=== PATIENT | female | born 1965 | race Caucasian/White ===

== ENCOUNTER → 2017-05-27 | Outpatient (CLI) | payer OTHER ==
[~2017-05-27] MED LIST: ASCO500C PO; CETI-1 PO; CETI10 PO; FISH100020 PO; IMIT50TA PO; MAGN1TAB PO; MAGN400T14 PO; NIAC500T18 PO; NIAC500T5 PO; OMEGCAP PO; SUMA50 PO; TRAM50 PO; VENTAER INH; VERA40TA PO; VITA200013 PO; VITA250C3 CHEW; Z.0.BCPILL PO
[2017-05-27 12:58] LABS: AUTOMATED NEUTROPHIL # 3.7 TH/MM3 (1.8-7.7); BASOPHIL # 0.1 TH/MM3 (0-0.2); BASOPHIL % 0.9 % (0.0-2.0); EOSINOPHIL # 0.2 TH/MM3 (0-0.4); EOSINOPHIL % 2.9 % (0.0-4.0); HEMATOCRIT 43.3 % (35.0-46.0); HEMO FLAGS DIFF FINAL; LYMPH % 39.4 % (9.0-44.0); MEAN CELL VOLUME 87.6 FL (80.0-100.0); MEAN CORPUSCULAR HEMOGLOBIN 28.6 PG (27.0-34.0); MEAN CORPUSCULAR HGB CONC 32.7 % (32.0-36.0); MONO % 8.5 % (0.0-8.0); NEUT % 48.3 % (16.0-70.0); PLATELET COUNT 277 TH/MM3 (150-450); RED BLOOD COUNT 4.95 MIL/MM3 (4.00-5.30); RED CELL DISTRIBUTION WIDTH 12.9 % (11.6-17.2); WHITE BLOOD COUNT 7.6 TH/MM3 (4.0-11.0)
[2017-05-27 13:13] LABS: BLOOD, URINE NEG (NEG); GLUCOSE,URINE NEG (NEG); KETONE, URINE NEG (NEG); MUCUS URINE FEW /lpf (OCC); NITRITE,URINE NEG (NEG); PH, URINE 6.5 (5.0-8.5); SQUAMOUS EPITHELIAL CELL URINE 6 /hpf (0-5); URINE COLOR LIGHT-YELLOW (YELLW/STRAW)
[2017-05-27 13:22] LABS: BICARBONATE 28.6 MEQ/L (21.0-32.0)
--- NOTE | 2017-05-28 17:12 | EKG ---
Date Performed: 05/27/2017 Time Performed: 12:02:31 PTAGE: 52 years EKG: Sinus rhythm NORMAL ECG Compared to prior tracing no significant change DOCTOR: Andres Trotter Interpretating Date/Time 05/28/2017 17:11:08
== END ==
LOC: CPRE 11:05
PROVIDERS: ATTEND Obstetrics & Gynecology
DX: Z01.812 Encounter for preprocedural laboratory examination (principal); Z01.810 Encounter for preprocedural cardiovascular examination; N81.89 Other female genital prolapse
CPT/HCPCS: 36415; 80048; 81001; 84703; 85025; 86850; 86900; 86901; 93005

== ENCOUNTER 2017-05-28 05:56 | Observation (INO) | payer OTHER ==
[~2017-05-28] VITALS: Ht 157.5 cm; Wt 59.8 kg
[~2017-05-28 05:56] MED LIST changes: -ASCO500C PO; -CETI10 PO; -FISH100020 PO; -MAGN1TAB PO; -NIAC500T18 PO; -SUMA50 PO; -TRAM50 PO; -VITA200013 PO; -Z.0.BCPILL PO
[2017-05-28] MEDS ORDERED: METOPROLOL TARTRATE 25 MG TAB PO PRN (06:30)
[2017-05-28] MEDS ORDERED: CHLORHEXIDINE GLUCONATE 2 % 1 PACK (2 CLOTHS) TOPICAL PRN (06:30)
[2017-05-28] MEDS ORDERED: INSULIN HUMAN REGULAR 1,000 UNITS/10 ML VIAL SQ PRN (06:30)
[2017-05-28] MEDS ORDERED: SODIUM CHLORID 0.9% 500 ML IV PRN (06:30)
[2017-05-28] MEDS ORDERED: APREPITANT 40 MG CAP PO PRN (06:30)
[2017-05-28] MEDS ORDERED: LACTATED RINGER'S 1000 ML IV PRN (06:30)
[2017-05-28] MEDS ORDERED: ceFAZolin 2 GM PREMIX 50 ML IV SCH (06:30)
[2017-05-28] MEDS ORDERED: POVIDONE IODINE 5% (ANTISEPSIS KIT) 4 APPLICATIONS EACH NARE PRN (06:30)
[2017-05-28] MEDS ORDERED: VITA200013 PO (06:49)
[2017-05-28 06:52] VITALS: BP 105/65; PULSE 68; RESP 16; TEMP 97.8; O2SAT 98
[2017-05-28] MEDS ORDERED: ACETAMINOPHEN 1000 MG/100 ML VIAL IV ONE ×2 (07:55→07:58)
[2017-05-28] MEDS ORDERED: fentaNYL CITRATE 250 MCG/5 ML AMP ONE ×2 (07:55)
[2017-05-28] MEDS ORDERED: FAMOTIDINE 20 MG/2 ML VIAL ONE (07:58)
[2017-05-28] MEDS ORDERED: MIDAZOLAM HCL 2 MG/2 ML VIAL ONE (07:58)
[2017-05-28] MEDS ORDERED: ESTROGENS CONJUGATED VAG CREA 15 APPL/30 GM TUBE ONE (07:59)
[2017-05-28] MEDS ORDERED: BUPIVACAINE HCL PF 0.25% 30 ML VIAL ONE (08:02)
[2017-05-28] MEDS ORDERED: oxyCODONE/ACETAMINOPHEN 5 MG/325 MG TAB PO PRN ×2 (10:45)
[2017-05-28] MEDS ORDERED: SODIUM CHLORIDE 0.9% FLUSH 10 ML FLUSH IV FLUSH PRN (10:45)
[2017-05-28] MEDS ORDERED: LORazepam 0.5 MG TAB PO PRN (10:45)
[2017-05-28] MEDS ORDERED: PROMETHAZINE INJ 25 MG/ML VIAL IM PRN (10:45)
[2017-05-28] MEDS ORDERED: KETOROLAC TROMETHAMINE 30 MG/ML (IVP) VIAL IVP PRN (10:45)
[2017-05-28] MEDS ORDERED: HYDROmorphone HCL PF 1 MG/ML VIAL IVP PRN (10:45)
[2017-05-28] MEDS ORDERED: ONDANSETRON HCL 4 MG/2 ML VIAL IVP PRN (10:45)
[2017-05-28] MEDS ORDERED: diphenhydrAMINE HCL 25 MG CAP PO PRN (10:45)
[2017-05-28] MEDS ORDERED: SODIUM CHLORIDE 0.9% FLUSH 10 ML FLUSH IV FLUSH SCH (10:45)
[2017-05-28] MEDS ORDERED: IBUPROFEN 600 MG TAB PO PRN (10:45)
[2017-05-28] MEDS ORDERED: DO NOT ADM ANY ANTICOAGULANT DRUGS PRN (10:53)
--- NOTE | 2017-05-28 11:08 | MP ---
cc: DAVID SEN M.D., WESLEY M.D. DATE OF SURGERY: 05/28/2017 PREOPERATIVE DIAGNOSIS Symptomatic uterine prolapse, cystocele, rectocele. PROCEDURE Exam under anesthesia, anterior and posterior colporrhaphies, cystourethroscopy. POSTOPERATIVE DIAGNOSIS Symptomatic uterine prolapse, cystocele, rectocele. SURGEON [place]. ANESTHESIA General endotracheal intubation. ESTIMATED BLOOD LOSS 120 cc. DRAINS Hyde to gravity. OPERATIVE FINDINGS The patient had complete uterine prolapse, stage III with a stage I cystocele and a stage II rectocele. PREOPERATIVE MEDICATIONS The patient received Ancef 2 grams prophylactically. INDICATION FOR PROCEDURE Patient with chronic debilitating pelvic prolapse attempted to use a pessary with no significant improvement. After reviewing the options she elected for surgical intervention. After reviewing the plan of procedure the patient elected as well to keep her ovaries intact. DETAILS OF PROCEDURE The patient was taken to the operating room in stable condition and underwent general anesthesia with endotracheal intubation. She was carefully positioned in the dorsal lithotomy position using candy-cane stirrups. She had sequentials placed on her lower extremities for VTE prophylaxis. She was prepped and draped and a Hyde was inserted by sterile technique. A timeout was conducted and agreed by all present in the room. Dissection initiated by identifying the cervix in the midline and making a linear incision in the posterior cul-de-sac opening into the intra-abdominal cavity allowing separation of the uterosacral ligaments from the uterus. These were clamped with Charlie clamps and transfixed with a suture of 2-0 Vicryl which was used on all pedicles. Serial excision and isolation of the appropriate pedicles were made bilaterally allowing the vaginal mucosa to fall away from the cervix, the bladder anteriorly. Once the vascular pedicles were secured hemostatically the uteroovarian pedicle was ligated with two sutures, free tie of 2-0 Vicryl followed by a transfixing suture of 2-0 Vicryl with good result. Once the uterus was removed the pedicles were observed to be dry. The peritoneum was then closed with a running suture of 3-0 Vicryl and the vaginal cuff was closed with interrupted suture of 2-0 Vicryl with good integrity. After completion of the hysterectomy portion the anterior repair was conducted, injecting the vaginal mucosa with 0.25% plain Marcaine allowing a linear incision to be made to dissect the defect. This was done by a combination of blunt and sharp dissection. The defect was reduced with an interrupted suture of 2-0 Monocryl and then the redundant vaginal mucosa was trimmed and closed with 3-0 Vicryl. Attention was directed to the posterior repair which was conducted in the same fashion, injecting the vaginal mucosa with 0.25% plain Marcaine and making a linear incision over the defect in the midline and then dissecting the defect away from the vaginal mucosa placing interrupted sutures of 2-0 Monocryl in a UR-6 needle to reduce the defect in the rectum and then trimming the vaginal mucosa. Once all sutures were trimmed the vaginal mucosa was closed in a linear fashion with good result. Good integrity of the closure was noted. There was no active bleeding. The vaginal vault was irrigated with normal saline. No active bleeding was noted. A two-inch vaginal packing with Premarin cream was placed into the vaginal vault. The Hyde catheter was removed. A 70-degree cystoscope was used with normal saline to examine the bladder which was intact. There was no interruption, no defect, no suture placement. Both ureteral orifices were peristalsing normally and patent. Completion of the cysto was followed by reinsertion of the Hyde catheter draining clear urine. At the completion of the case the final counts were correct. The patient was stable. She was taken to recovery room on room air. David Sen MD SJKassi/LISSY /10:48 AM /10:58 AM
[2017-05-28] MEDS ORDERED: LACTATED RINGER'S 1000 ML INJ 1,000 ML IV ONE (12:00)
[2017-05-28] MEDS ORDERED: KETOROLAC TROMETHAMINE 60 MG/2 ML (IM) VIAL IM ONE (12:00)
[2017-05-28] MEDS ORDERED: NEOSTIGMINE 3 MG/3 ML SYR IV ONE (12:00)
[2017-05-28] MEDS ORDERED: PROPOFOL 200 MG/20 ML AMP IV ONE (12:00)
[2017-05-28] MEDS ORDERED: ONDANSETRON HCL 4 MG/2 ML VIAL IV PUSH ONE (12:00)
[2017-05-28] MEDS ORDERED: ePHEDrine/NS 25 MG/5 ML SYR IV ONE (12:00)
[2017-05-28] MEDS ORDERED: *morphine SULFATE 8 MG/ML PERIprocedure ONLY ONE (12:02)
[2017-05-28 12:40] VITALS: BP 96/56; PULSE 80; RESP 15; TEMP 97.6; O2SAT 100
[2017-05-28] MEDS: DOCUSATE SODIUM 100 MG CAP PO SCH (13:00)
[2017-05-28 16:36] VITALS: BP 98/58; PULSE 87; RESP 18; TEMP 97.8; O2SAT 100
[2017-05-28 19:15] VITALS: BP 103/69; PULSE 72; RESP 16; TEMP 97.5; O2SAT 100
[2017-05-28] MEDS: LACTATED RINGER'S 1000 ML INJ 1,000 ML IV SCH (19:16)
[2017-05-28] MEDS ORDERED: ZOLPIDEM TARTRATE 5 MG TAB PO PRN (21:00)
[2017-05-28 23:30] VITALS: BP 103/60; PULSE 91; RESP 18; TEMP 98.1; O2SAT 100
[2017-05-29] MEDS: DOCUSATE SODIUM 100 MG CAP PO SCH ×2 (01:00→11:38)
[2017-05-29] MEDS: LACTATED RINGER'S 1000 ML INJ 1,000 ML IV SCH (02:00)
[2017-05-29 03:50] VITALS: BP 114/62; PULSE 90; RESP 16; TEMP 98.2; O2SAT 100
[2017-05-29 05:55] LABS: AUTOMATED NEUTROPHIL # 10.5 TH/MM3 (1.8-7.7); BASOPHIL % 0.2 % (0.0-2.0); HEMO FLAGS DIFF FINAL; LYMPH % 13.4 % (9.0-44.0); LYMPHOCYTE # 1.7 TH/MM3 (1.0-4.8); MEAN CELL VOLUME 87.6 FL (80.0-100.0); MEAN CORPUSCULAR HEMOGLOBIN 29.1 PG (27.0-34.0); MEAN CORPUSCULAR HGB CONC 33.2 % (32.0-36.0); NEUT % 80.4 % (16.0-70.0); PLATELET COUNT 235 TH/MM3 (150-450); RED BLOOD COUNT 4.11 MIL/MM3 (4.00-5.30)
[2017-05-29 06:14] LABS: BICARBONATE 28.5 MEQ/L (21.0-32.0); POTASSIUM 3.9 MEQ/L (3.5-5.1)
[2017-05-29 08:25] VITALS: BP 89/61; PULSE 74; RESP 16; TEMP 98.5; O2SAT 100
--- NOTE | 2017-05-29 10:55 | HHI.DCPOC ---
Discharge Care Plan Your Health Problems Are: Fever, temperature>100.4 Nausea and/or vomiting Pelvic pain Vaginal bleeding Urinary difficulties Report Symptoms to Your Doctor -Temperature above 100.5 degrees -Redness, of incision or excessive or foul smelling drainage -Unusual pain or calf pain -Increased vaginal bleeding -Painful or difficulty urinating -Feelings of extreme sadness or anxiety after 2 weeks Goals to Promote Your Health * To prevent worsening of your condition and complications * To maintain your health at the optimal level Directions to Meet Your Goals Take your medications as prescribed Follow your dietary instruction Follow activity as directed Ensure plenty of rest for recovery Drink fluids for hydration Keep your appointments as scheduled Take your immunizations and boosters as scheduled If your symptoms worsen call your PCP, if no PCP go to Urgent Care Center or Emergency Room Smoking is Dangerous to Your Health. Avoid second hand smoke Call the 24-hour crisis hotline for domestic abuse at David Colón MD May 29, 2017 10:55
--- NOTE | 2017-05-29 10:59 | HHI.PR ---
Subjective Remarks POD#1; Doing well, pain is well controlled, eating well. Objective Vital Signs Vital Signs Date Time Temp Pulse Resp B/P Pulse Ox O2 Delivery O2 Flow Rate FiO2 05/29/17 08:25 98.5 74 16 89/61 100 05/29/17 08:25 98.5 74 16 89/61 100 05/29/17 03:50 98.2 90 16 114/62 100 05/28/17 23:30 98.1 91 18 103/60 100 05/28/17 19:15 97.5 72 16 103/69 100 05/28/17 16:36 97.8 87 18 98/58 100 05/28/17 12:40 97.6 80 15 96/56 100 05/28/17 12:15 63 14 98/57 96 Room Air 05/28/17 12:00 61 14 105/59 93 Room Air 05/28/17 11:45 75 16 107/60 97 Room Air 05/28/17 11:30 68 15 106/58 99 Room Air 05/28/17 11:15 62 15 111/57 99 Nasal Cannula 2 05/28/17 11:00 68 15 116/50 100 Nasal Cannula 2 I/O 05/28/17 05/28/17 05/28/17 05/29/17 05/29/17 05/29/17 07:00 15:00 23:00 07:00 15:00 23:00 Intake Total 990 ml 1990 ml Output Total 150 ml 225 ml 2125 ml 400 ml Balance -150 ml 765 ml -135 ml -400 ml Intake Oral 240 ml IV Total 990 ml 1750 ml Output Urine Total 150 ml 225 ml 2125 ml 400 ml Result Diagram: 05/29/17 0437 05/29/17 0437 Objective Remarks Chest is clear, regular rate and rhythm. Abdomen is soft and non-distended. Incision is clean and dry. Ext no CCE. A/P Assessment and Plan Post Op Day 1 Doing well, voiding well, no drainage Home today and return to office in one weeks. David Colón MD May 29, 2017 10:58
== END 2017-05-29 11:48 | disposition home or self-care (01) ==
LOC: HSDC 05:56 → HSDI 10:36 → H1EA 12:20
PROVIDERS: ADMIT Obstetrics & Gynecology; ATTEND Obstetrics & Gynecology
PROC: 0JQC0ZZ Repair Pelvic Region Subcutaneous Tissue and Fascia, Open Approach (ICD-10-PCS; 2017-05-28)
PROC: 0JQC0ZZ Repair Pelvic Region Subcutaneous Tissue and Fascia, Open Approach (ICD-10-PCS; principal; 2017-05-28 08:11)
DX: N81.3 Complete uterovaginal prolapse (principal); N80.0 Endometriosis of uterus; N72 Inflammatory disease of cervix uteri
CPT/HCPCS: 00942; 57260; 80048; 85025; 88302; 88307; G0378; J0131; J0690; J1885; J2250; J2270; J2405; J2710; J3010; J7120; J8501; 88305

== ENCOUNTER 2017-08-23 13:27 | Emergency (ER) | payer OTHER ==
[~2017-08-23] VITALS: Ht 157.5 cm; Wt 58.0 kg
[~2017-08-23 13:27] MED LIST changes: +VITA200013 PO
[2017-08-23 13:29] VITALS: BP 147/51; PULSE 122; RESP 20; TEMP 98.8; O2SAT 97
[2017-08-23] MEDS ORDERED: NITR100C4 PO (14:12)
--- NOTE | 2017-08-23 14:20 | PD ---
HPI Chief Complaint: Complaint Time Seen by Provider: 13:58 Travel History International Travel<30 days: No Contact w/Intl Traveler<30days: No Traveled to known affect area: No History of Present Illness HPI 52-year-old female that presents to the ED for evaluation of possible UTI. Per patient since yesterday she's been developing lower pelvic pain as well as back pain. Last night she developed a fever as well as chills and congestion and she got concerned because she's had UTIs 2 since having her hysterectomy. She denies ever having UTIs in the past. She was started on Macrobid by her doctor and had to pink up but she did not get the results of the urine. Denies any fevers chills or sweats at this time and she took some medication to alleviate. She has had 2 doses of her Macrobid. She does have allergies to sulfa. She states that her pain is 2 out of 10 and is not severe. She denies any vaginal discharge or bleeding. No bowel movement issues. Per patient the urine has some smell to it. Does not hurt to urinate. Denies any other medical issues at this time. PFSH Past Medical History Asthma: No Blood Disorders: No Anxiety: Yes Cancer: No Cardiovascular Problems: No High Cholesterol: Yes Chest Pain: Yes (STRESSTEST: SEP, 2014: NEGATIVE) Diabetes: No Endocrine: No Genitourinary: No Headaches: Yes Hepatitis: No Hiatal Hernia: No Immune Disorder: Yes (PSORIASIS) Musculoskeletal: No Neurologic: No Psychiatric: No Reproductive: Yes Respiratory: Yes (ASTHMA) Integumentary: Yes (PSORIASIS) Migraines: Yes Pneumonia: Yes (WALKING) Thyroid Disease: No ?: Not : 2 Para: 2 Past Surgical History Abdominal Surgery: No AICD: No Body Medical Devices: NONE Cardiac Surgery: No Ear Surgery: No Endocrine Surgery: No Eye Surgery: No Genitourinary Surgery: No Gynecologic Surgery: No Hysterectomy: Yes Joint Replacement: No Oral Surgery: No Pacemaker: No Thoracic Surgery: No Tonsillectomy: Yes (AGE 6) Other Surgery: Yes (Tonsilectomy) Social History Alcohol Use: No Tobacco Use: No Substance Use: No Allergies-Medications (Allergen,Severity, Reaction): Coded Allergies: gabapentin (Unverified Allergy, Intermediate, Diarrhea, 08/23/17) "SEVERE DIARRHEA" sulfamethoxazole (Unverified Allergy, Intermediate, Nausea/Vomiting, ) trimethoprim (Unverified Allergy, Intermediate, Nausea/Vomiting, 08/23/17) Reported Meds & Prescriptions Reported Meds & Active Scripts Active Amoxicillin 875 Mg Tab 875 Mg PO BID 10 Days Reported Nitrofurantoin Monohydrate Macrocrystals (Nitrofurantoin Monoh/Nitrofur Macro) 100 Mg Cap 100 Mg PO BID Vitamin D (Cholecalciferol) 2,000 Unit Cap 1 Tab PO DAILY Verapamil (Verapamil HCl) 40 Mg Tab 40 Mg PO BID Imitrex (Sumatriptan Succinate) 50 Mg Tab 50 Mg PO ONCE PRN If a satisfactory response has not been obtained at 2 hours, a second dose may be administered Helotes-3 Fish Oil/Vitamin (Fish Oil-Cholecalciferol) 1,000-1,000 Mg Cap 1 Cap PO DAILY Niacin 500 Mg Tab 500 Mg PO DAILY Magnebind-400 Rx (Magnesium-Calcium Carbonates-Folic Acid) 400-200-1 Mg Tab 2 Tab PO HS Zyrtec (Cetirizine HCl) 10 Mg Tablet 10 Mg PO HS Vitamin C (Ascorbic Acid) 250 Mg Chew 500 Mg CHEW HS Ventolin Hfa 18 GM Inh (Albuterol Sulfate) 90 Mcg/Act Aer 1 Puff INH Q4H PRN Review of Systems Except as stated in HPI: all other systems reviewed are Neg Physical Exam Narrative GENERAL: SKIN: Warm and dry. HEAD: Atraumatic. Normocephalic. EYES: Pupils equal and round. No scleral icterus. No injection or drainage. ENT: No nasal bleeding or discharge. Mucous membranes pink and moist. Tongue is midline. No uvula deviation. TMs appear to be clear with no sign of infection or perforation with exception of the right lung which does appear to be fluid-filled and erythematous. No pain. Tonsils are not swollen or deviated. No exudates noted. No meningeal signs noted. NECK: Trachea midline. No JVD. CARDIOVASCULAR: Regular rate and rhythm. No murmurs, S3, S4. RESPIRATORY: No accessory muscle use. Clear to auscultation. Breath sounds equal bilaterally. GASTROINTESTINAL: Abdomen soft, non-tender, nondistended. Hepatic and splenic margins not palpable. MUSCULOSKELETAL: Extremities without clubbing, cyanosis, or edema. No obvious deformities. Full range of motion of the upper and lower extremities bilaterally. 2+ pulses bilaterally. NEUROLOGICAL: Awake and alert. No obvious cranial nerve deficits. Motor grossly within normal limits. Five out of 5 muscle strength in the arms and legs. Normal speech. PSYCHIATRIC: Appropriate mood and affect; insight and judgment normal. Data Data Last Documented VS Vital Signs Date Time Temp Pulse Resp B/P (MAP) Pulse Ox O2 Delivery O2 Flow Rate FiO2 08/23/17 16:40 08/23/17 16:32 100 18 98 08/23/17 13:29 98.8 Orders Orders Complete Blood Count With Diff (08/23/17 13:58) Comprehensive Metabolic Panel (08/23/17 13:58) Lipase (08/23/17 13:58) Urinalysis - C+S If Indicated (08/23/17 13:58) Chest, Single Ap (08/23/17 ) Ct Abd/Pel W Iv Contrast(Rout) (08/23/17 ) Sodium Chlor 0.9% 1000 Ml Inj (Ns 1000 M (08/23/17 14:42) Iohexol 350 Inj (Omnipaque 350 Inj) (08/23/17 15:19) Labs Laboratory Tests Test 08/23/17 14:10 White Blood Count 17.5 TH/MM3 Red Blood Count 4.90 MIL/MM3 Hemoglobin 14.6 GM/DL Hematocrit 42.6 % Mean Corpuscular Volume 87.0 FL Mean Corpuscular Hemoglobin 29.8 PG Mean Corpuscular Hemoglobin Concent 34.2 % Red Cell Distribution Width 12.7 % Platelet Count 239 TH/MM3 Mean Platelet Volume 8.3 FL Neutrophils (%) (Auto) 91.8 % Lymphocytes (%) (Auto) 4.5 % Monocytes (%) (Auto) 2.1 % Eosinophils (%) (Auto) 1.3 % Basophils (%) (Auto) 0.3 % Neutrophils # (Auto) 16.1 TH/MM3 Lymphocytes # (Auto) 0.8 TH/MM3 Monocytes # (Auto) 0.4 TH/MM3 Eosinophils # (Auto) 0.2 TH/MM3 Basophils # (Auto) 0.1 TH/MM3 CBC Comment AUTO DIFF Differential Comment AUTO DIFF CONFIRMED Platelet Estimate NORMAL Platelet Morphology Comment NORMAL Red Cell Morphology Comment NORMAL Urine Color LIGHT-YELLOW Urine Turbidity CLEAR Urine pH 7.5 Urine Specific [place] 1.001 Urine Protein NEG mg/dL Urine Glucose (UA) NEG mg/dL Urine Ketones NEG mg/dL Urine Occult Blood NEG Urine Nitrite NEG Urine Bilirubin NEG Urine Urobilinogen LESS THAN 2.0 MG/DL Urine Leukocyte Esterase NEG Urine RBC LESS THAN 1 /hpf Urine WBC LESS THAN 1 /hpf Urine Squamous Epithelial Cells <1 /hpf Microscopic Urinalysis Comment CULT NOT INDICATED Blood Urea Nitrogen 14 MG/DL Creatinine 0.90 MG/DL Random Glucose 100 MG/DL Total Protein 7.6 GM/DL Albumin 3.9 GM/DL Calcium Level 8.7 MG/DL Alkaline Phosphatase 67 U/L Aspartate Amino Transf (AST/SGOT) 16 U/L Alanine Aminotransferase (ALT/SGPT) 27 U/L Total Bilirubin 1.2 MG/DL Sodium Level 140 MEQ/L Potassium Level 3.8 MEQ/L Chloride Level 104 MEQ/L Carbon Dioxide Level 29.9 MEQ/L Anion Gap 6 MEQ/L Estimat Glomerular Filtration Rate 66 ML/MIN Lipase 142 U/L MDM Medical Decision Making Medical Screen Exam Complete: Yes Emergency Medical Condition: Yes Medical Record Reviewed: Yes Interpretation(s) CBC & BMP Diagram 08/23/17 14:10 Total Protein 7.6, Albumin 3.9, Calcium Level 8.7, Alkaline Phosphatase 67, Aspartate Amino Transf (AST/SGOT) 16, Alanine Aminotransferase (ALT/SGPT) 27, Total Bilirubin 1.2 H lipase WNL UA negative Last Impressions Chest X-Ray 08/23/17 0000 Signed Impressions: Service Date/Time: Wednesday, August 23, 2017 14:26 - CONCLUSION: No acute disease. Marlon Flores MD Abdomen/Pelvis CT 08/23/17 0000 Signed Impressions: Service Date/Time: Wednesday, August 23, 2017 15:18 - CONCLUSION: No acute CT findings in the abdomen or pelvis. Marlon Flores MD Differential Diagnosis UTI versus cystitis versus lower abdominal discomfort versus sepsis versus pyelonephritis versus pneumonia versus bronchitis Narrative Course 52-year-old female that presents to the ED for evaluation of possible UTI. Patient was properly examined and was found to have signs and symptoms of unclear to this time. Possible UTI noted. Labs and imaging were ordered. Labs and imaging were essentially unremarkable. Urine was completely clean. Chest x-ray to show any sign of pneumonia. On exam she does appear to have a possible early otitis media on the right side. There is definite difference between the TMs but in the right on the left than the right one appears to be bulging with some erythema but patient has no pain. I do suspect she may be having a URI. Because the patient did have recent surgery and she had some lower abdominal pain with touch and do recommend imaging to make sure there is nothing else. CT was done and was negative. She agreed with this plan. CT negative for acute disease. Patient will be treated with amoxicillin for her ear infection. Likely URI related. Told to DC macrobid as it does not appear to be a UTI. Follow up with PCP. See ED if worsening symptoms. Diagnosis Primary Impression: Otitis media Qualified Codes: H66.001 - Acute suppurative otitis media without spontaneous rupture of ear drum, right ear Patient Instructions: General Instructions Additional Instructions: Stop the Macrobid. Take amoxicillin. Decongestants as needed. See ED for any worsening symptoms. Tylenol and Motrin for the fever and pain as needed. Med/Other Pt SpecificInfo: Prescription(s) given Scripts Amoxicillin (Amoxicillin) 875 Mg Tab 875 MG PO BID for Infection for 10 Days, #20 TAB 0 Refills Prov: Scott Luis MD 08/23/17 Disposition: 01 DISCHARGE HOME Condition: Stable Stefan Arellano Aug 23, 2017 14:20
[2017-08-23 14:25] LABS: AUTOMATED NEUTROPHIL # 16.1 TH/MM3 (1.8-7.7); BASOPHIL # 0.1 TH/MM3 (0-0.2); BASOPHIL % 0.3 % (0.0-2.0); EOSINOPHIL # 0.2 TH/MM3 (0-0.4); EOSINOPHIL % 1.3 % (0.0-4.0); HEMATOCRIT 42.6 % (35.0-46.0); LYMPH % 4.5 % (9.0-44.0); LYMPHOCYTE # 0.8 TH/MM3 (1.0-4.8); MEAN CORPUSCULAR HEMOGLOBIN 29.8 PG (27.0-34.0); MEAN CORPUSCULAR HGB CONC 34.2 % (32.0-36.0); MONO % 2.1 % (0.0-8.0); NEUT % 91.8 % (16.0-70.0); PLATELET COUNT 239 TH/MM3 (150-450); RED CELL DISTRIBUTION WIDTH 12.7 % (11.6-17.2); WHITE BLOOD COUNT 17.5 TH/MM3 (4.0-11.0)
[2017-08-23 14:26] LABS: BLOOD, URINE NEG (NEG); GLUCOSE,URINE NEG (NEG); HEMO FLAGS AUTO DIFF; KETONE, URINE NEG (NEG); NITRITE,URINE NEG (NEG); PH, URINE 7.5 (5.0-8.5); SQUAMOUS EPITHELIAL CELL URINE <1 /hpf (0-5); URINE COLOR LIGHT-YELLOW (YELLW/STRAW)
[2017-08-23 14:30] LABS: COMMENT (UR) CULT NOT INDICATED; CULTURE IF INDICATED CULT NOT INDICATED
--- NOTE | 2017-08-23 14:39 | RADRPT ---
EXAM DATE/TIME: 08/23/2017 14:26 [facility] COMPARISON: CHEST SINGLE AP, September 24, 2014, 19:49. INDICATIONS : Fever. Chills. MEDICAL HISTORY : None. SURGICAL HISTORY : None. ENCOUNTER: Initial ACUITY: 2 days PAIN SCORE: 0/10 LOCATION: Bilateral chest FINDINGS: A single view of the chest demonstrates the lungs to be symmetrically aerated without evidence of mas s, infiltrate or effusion. The cardiomediastinal contours are unremarkable. Osseous structures are intact. CONCLUSION: No acute disease. Marlon Flores MD on August 23, 2017 at 14:37 Board Certified Radiologist. This report was verified electronically.
[2017-08-23 14:41] LABS: ALT (GPT) 27 U/L (10-53); ANION GAP 6 MEQ/L (5-15); AST (GOT) 16 U/L (15-37); BICARBONATE 29.9 MEQ/L (21.0-32.0); BLOOD UREA NITROGEN 14 MG/DL (7-18); CHLORIDE 104 MEQ/L (98-107); GLOMERULAR FILTRATION RATE 66 ML/MIN (>89); POTASSIUM 3.8 MEQ/L (3.5-5.1); SODIUM (NA) 140 MEQ/L (136-145)
[2017-08-23] MEDS ORDERED: SODIUM CHLOR 0.9% 1000 ML INJ 1,000 ML IV SCH (14:42)
[2017-08-23 14:43] LABS: ALKALINE PHOSPHATASE 67 U/L (45-117); TOTAL BILIRUBIN ADULT 1.2 MG/DL (0.2-1.0)
[2017-08-23 14:51] LABS: PLATELET ESTIMATE SMEAR NORMAL (NORMAL); PLATELET MORPHOLOGY NORMAL (NORMAL); SCAN/DIFF AUTO DIFF CONFIRMED
[2017-08-23] MEDS ORDERED: IOHEXOL 350 MG/ML 10 ML VIAL (for RAD DIAG) IVCONTRAST ONE (15:19)
--- NOTE | 2017-08-23 15:35 | RADRPT ---
EXAM DATE/TIME: 08/23/2017 15:18 [facility] COMPARISON: No previous studies available for comparison. INDICATIONS : Low abdomen pain; fever, chills. IV CONTRAST: 100 cc Omnipaque 350 (iohexol) IV ORAL CONTRAST: No oral contrast ingested. RADIATION DOSE: 5.65 CTDIvol (mGy) MEDICAL HISTORY : None SURGICAL HISTORY : Hysterectomy. Prolapse repair. ENCOUNTER: Initial ACUITY: 1 day PAIN SCALE: 5/10 LOCATION: Bilateral lower quadrant TECHNIQUE: Volumetric scanning of the abdomen and pelvis was performed. Using automated exposure control and ad justment of the mA and/or kV according to patient size, radiation dose was kept as low as reasonably achievable to obtain optimal diagnostic quality images. DICOM format image data is available electro nically for review and comparison. FINDINGS: LOWER LUNGS: The visualized lower lungs are clear. LIVER: Homogeneous density without lesion. There is no dilation of the biliary tree. No calcified gallston es. SPLEEN: Normal size without lesion. PANCREAS: Within normal limits. KIDNEYS: Normal in size and shape. There is no mass, stone or hydronephrosis. ADRENAL GLANDS: Within normal limits. VASCULAR: There is no aortic aneurysm. BOWEL/MESENTERY: The stomach, small bowel, and colon demonstrate no acute abnormality. There is no free intraperitone al air or fluid. ABDOMINAL WALL: Within normal limits. RETROPERITONEUM: There is no lymphadenopathy. BLADDER: No wall thickening or mass. REPRODUCTIVE: Uterus is surgically absent. No evidence of pelvic mass or free fluid. INGUINAL: There is no lymphadenopathy or hernia. MUSCULOSKELETAL: Within normal limits for patient age. CONCLUSION: No acute CT findings in the abdomen or pelvis. Marlon Flores MD on August 23, 2017 at 15:28 Board Certified Radiologist. This report was verified electronically.
[2017-08-23] MEDS ORDERED: AMOX875T PO (15:53)
[2017-08-23 16:26] VITALS: BP 110/57; PULSE 75; RESP 16; O2SAT 99
[2017-08-23 16:32] VITALS: BP 110/57; PULSE 100; RESP 18; O2SAT 98
== END 2017-08-23 16:51 | disposition home or self-care (01) ==
LOC: NEPC 13:27
DX: H66.001 Acute suppurative otitis media without spontaneous rupture of ear drum, right ear (principal); Z88.2 Allergy status to sulfonamides
CPT/HCPCS: 71010; 74177; 80053; 81001; 83690; 85025; 99285; J7030; Q9967